=== PATIENT | male | born 1945 | race Caucasian/White ===

== ENCOUNTER 2018-10-03 11:54 | Outpatient (RCR) | payer OTHER, SELFPAY | END 2018-10-03 23:59 | disposition home or self-care (01) | LOC: CR 11:54 | PROVIDERS: PCP Emergency Medicine; Visit Provider Family Medicine | DX: I48.91 Unspecified atrial fibrillation (principal); R55 Syncope and collapse; Z51.89 Encounter for other specified aftercare | CPT/HCPCS: S9472 ==

== ENCOUNTER 2018-10-29 11:55 | Outpatient (RCR) | payer OTHER, SELFPAY | END 2018-11-02 23:59 | disposition home or self-care (01) | LOC: CR 11:55 | PROVIDERS: PCP Emergency Medicine; Visit Provider Family Medicine | DX: I48.91 Unspecified atrial fibrillation (principal); R55 Syncope and collapse; Z51.89 Encounter for other specified aftercare | CPT/HCPCS: S9472 ==

== ENCOUNTER 2018-10-29 18:02 | Emergency (ER) | payer OTHER, SELFPAY ==
[2018-10-29] VITALS (20 sets, daily range): BP systolic 110–124; BP diastolic 52–63; PULSE 0–73; RESP 11–20; TEMP 36.7; O2SAT 94–97
--- NOTE | 2018-10-29 18:24 | ED.GENADUL_ITS ---
Discharge Plan Disposition Patient Disposition: HOME Condition: Stable Discharge Details Chief Complaint: Cellulitis Clinical Impression: Cellulitis of lower leg Primary Care Provider: Enrique Nunez ED Provider: Gurjit Rowe Home Meds and New Rx's Prescriptions: New cephalexin 500 mg capsule 500 mg PO TID 7 Days Qty: 21 RF: 0 Continued trazodone 100 MG tablet 100 mg PO QHS RF: 0 gabapentin 100 MG capsule 600 mg PO BID RF: 0 hydrocodone-acetaminophen [Vicodin] 1 EACH tablet 1 ea PO BID Qty: 60 RF: 0 omeprazole 40 MG capsule,delayed release(DR/EC) 40 mg PO BID Qty: 180 RF: 1 Ocuvite with Lutein 1 TAB tablet 2 tab PO BID RF: 0 albuterol sulfate 2.5 MG/3 ML solution for nebulization 2.5 mg Inhalation Q6H PRN PRNQty: 1 RF: 0 furosemide 40 mg Tablet 40 mg PO DAILY RF: 0 atorvastatin 80 mg Tablet 80 mg PO DAILY RF: 0 metoprolol succinate 100 mg Tablet Extended Release 24 Hr 100 mg PO DAILY RF: 0 warfarin 5 mg Tablet 5 mg PO DIRECTED RF: 0 losartan 25 mg Tablet 25 mg PO DAILY RF: 0 gabapentin 300 mg Capsule 900 mg PO QHS RF: 0 albuterol sulfate 90 mcg/actuation Hfa Aerosol Inhaler 2 puff INHALATION Q4H PRNRF: 0 fluticasone propionate 50 mcg/actuation [place],Suspension 2 spray INTRANASAL DAILY RF: 0 loratadine 10 mg Tablet 10 mg PO DAILY RF: 0 buspirone 15 mg Tablet 15 mg PO BID RF: 0 bupropion HCl 300 mg Tablet Extended Release 24 Hr 300 mg PO QHS RF: 0 Discharge Instructions Instructions: Cellulitis (ED) Additional Instructions: We will ask our care management team to arrange a follow-up for you at the [facility] for or Saturday. You will require both a wound check and a repeat INR. Continue your regular medications. You are given your days dose of furosemide/Lasix today. Begin Keflex tomorrow as prescribed. Return for shaking chill, development of fever, worsening redness or any other acute concerns Medical Decision Making 73-year-old male with history of atrial fibrillation for which she takes warfarin, coronary artery disease and currently in cardiac rehab. Presents with days of progressive lower extremity edema and weeping ulcerations. He is not had a fever and arrives to the ER in no acute distress. Exam reveals chronic venous stasis changes of the lower extremity with shallow ulcerations and overlying cellulitis. Wound culture obtained, patient had screening laboratories including INR performed. Please note a reassuring CBC, INR is 2.9. Mepilex wound dressing placed over ulcerations of left lower extremity. We will ask care management to arrange a follow-up with the [facility] for him, [facility], for or Saturday for wound check and to check INR. Patient given ceftriaxone and will place on Keflex, this should interact with his warfarin the least, but he will require surveillance of the INR which I discussed the patient and his . ECG Data Attestation: I personally reviewed and interpreted this ECG (s) as follows: Interpretation: Sinus bradycardia with a rate of 56, the QRS is narrow, there is no ST segment elevation HPI General Mode of arrival: ambulatory . Date/Time Provider Initiated Documentation: 10/29/18 18:05 . Limitations to Documentation: no limitations . Information obtained by: patient and family . History of Present Illness 73 year old M presents to the emergency department with the chief complaint of Bilateral leg swelling with weeping sores, described as similar to prior episodes, Quality is described as dull and constant, and is localized to the left, right and lower extremity. Patient reports no radiation. Patient started experiencing this day(s) and it has been constant. No relieving factors improve symptom(s), No exacerbating factors reported . Patient notes no other symptoms.; denies chest pain, cough, diaphoresis, fever/chills and shortness of breath. Patient did receive the following treatments prior to arrival, none Related Data Home Medications Medication Instructions Recorded Confirmed Ocuvite with Lutein 2 tab PO BID 11/01/14 10/29/18 albuterol sulfate 2.5 mg INHALATION Q6H PRN PRN #1 03/09/15 10/29/18 bottle gabapentin 600 mg PO BID 03/09/15 10/29/18 trazodone 100 mg PO QHS 03/09/15 10/29/18 hydrocodone-acetaminophen [Vicodin] 1 ea PO BID #60 tab 10/04/15 10/29/18 omeprazole 40 mg PO BID #180 tab-cap 06/06/16 10/29/18 albuterol sulfate 2 puff INHALATION Q4H PRN 10/29/18 10/29/18 atorvastatin 80 mg PO DAILY 10/29/18 10/29/18 bupropion HCl 300 mg PO QHS 10/29/18 10/29/18 buspirone 15 mg PO BID 10/29/18 10/29/18 cephalexin 500 mg PO TID 7 Days #21 cap 10/29/18 fluticasone propionate 2 spray INTRANASAL DAILY 10/29/18 10/29/18 furosemide 40 mg PO DAILY 10/29/18 10/29/18 gabapentin 900 mg PO QHS 10/29/18 10/29/18 loratadine 10 mg PO DAILY 10/29/18 10/29/18 losartan 25 mg PO DAILY 10/29/18 10/29/18 metoprolol succinate 100 mg PO DAILY 10/29/18 10/29/18 warfarin 5 mg PO DIRECTED 10/29/18 10/29/18 Previous Rx's Medication Instructions Recorded albuterol sulfate 2.5 mg INHALATION Q6H PRN PRN #1 03/09/15 bottle cephalexin 500 mg PO TID 7 Days #21 cap 10/29/18 Allergies Allergy/AdvReac Type Severity Reaction Status Date / Time acetaminophen [From Percocet] Allergy Itching Unverified 10/29/18 18:14 oxycodone HCl [From Percocet] Allergy Itching Unverified 10/29/18 18:14 aspirin AdvReac Severe GI BLEEDING Unverified 10/29/18 18:14 NSAIDS (Non-Steroidal AdvReac Severe GI BLEED Unverified 10/29/18 18:14 Anti-Inflamma oxycodone [Oxycodone] AdvReac Unknown Unverified 10/29/18 18:14 tide detergent Allergy Intermediate Skin Rash Uncoded 10/29/18 18:14 General Stated Complaint: GenMedical DOMINIQUE: 3 Review of Systems Review of Systems 6 systems reviewed and otherwise negative FOR[facility] Surgical History Colonoscopy - MAC Extraction of cataract Gastric Bypass Replacement of total knee joint (~1999) Social History Smoking/Tobacco Use Status: Former Tobacco Use Alcohol Intake: never Drug use: Never Do you feel safe at home: Yes Do you feel safe in your relationship?: Yes Exam Narrative Exam Narrative: GEN: awake, alert, oriented 3. Pleasant, well groomed, interactive. HEAD: Normocephalic, atraumatic ENT: Mucous membranes moist, oropharynx unremarkable, External ear exam unremarkable EYES: PERRL, EOMI NECK: Full ROM, no DANE, no menigismus CHEST/RESP: Nontender, clear to auscultation bilateral, no wheeze/rhonchi/rales CARDIOVASCULAR: RRR, no murmur, rub nate. 2+ Rad pulse bilateral ABDOMEN: Soft, nontender, no mass. +Bowel sounds EXT: Full ROM, 2+ symmetric edema. There is chronic venous stasis changes of the bilateral pretibial regions, some clear serous fluid is oozing from shallow ulcerations, there is no significant asymmetry, no cords palpated, nontender. Palpable DP bilaterally. Neuro: Grossly normal neurologic exam, conversant, interactive. Psych: Speech fluent, thoughts congruent, affect normal Course Vital Signs Temperature 36.7 C 10/29/18 18:06 Pulse 59 L 10/29/18 18:06 Respiratory Rate 18 10/29/18 18:06 Blood Pressure 111/55 L 10/29/18 18:06 Pulse Oximetry 96 10/29/18 18:06 Temperature 36.7 C 10/29/18 18:06 Pulse 59 L 10/29/18 18:06 Respiratory Rate 18 10/29/18 18:06 Respiratory Effort 10/29/18 18:09 Blood Pressure 111/55 L 10/29/18 18:06 Blood Pressure Position Sitting 10/29/18 18:06 Pulse Oximetry 96 10/29/18 18:06 Oxygen Delivery Method Room Air 10/29/18 18:06 Oxygen Flow Rate 0 10/29/18 18:06
[2018-10-29 18:49] LABS: Abs Immature Grans 0.01 k/cumm (0.0-0.09); Absolute Basophil Count 0.01 k/cumm (0.0-0.2); Absolute Lymphocyte Count 1.32 k/cumm (1.2-3.4); Absolute Neutrophil Count 4.32 k/cumm (1.2-6.7); Basophils % 0.2; Eosinophils % 1.6; HCT 38.5 % (40.0-50.0); HGB 13.4 g/dL (13.5-17.5); Immature Grans % 0.2; Lymphocytes % 20.8; Mean Corp. HGB Concentration 34.8 g/dL (32.0-36.0); Mean Corpuscular Hemoglobin 32.3 pg (27.0-33.0); Mean Corpuscular Volume 92.8 fL (80-95); Mean Platelet Volume 9.9 fL (8.0-11.0); Monocytes % 9.4; Neutrophils % 67.8; Platelet Count 181 x1000/uL (130-400); RBC 4.15 m/cumm (4.50-6.00); RBC Distribution Width 12.9 % (11.8-14.1); White Blood Cell Count 6.36 k/cumm (4.4-10.8)
[2018-10-29 19:01] LABS: ALT 32 U/L (12-78); AST 30 U/L (15-37); Albumin 3.2 g/dL (3.4-5.0); Alkaline Phosphatase 107 U/L (46-116); Anion Gap 7.8 mmol/L (3-11); BUN 16 mg/dL (7-18); Bilirubin, Total 1.2 mg/dL (0.2-1.0); CO2 28.2 mmol/L (21.0-32.0); CREATININE 0.95 mg/dL (0.70-1.30); Calcium 8.3 mg/dL (8.5-10.1); Chloride 110 mmol/L (98-107); Glucose 97 mg/dL (70-100); Potassium 3.9 mmol/L (3.5-5.1); Sodium 146 mmol/L (136-145); Total Protein 6.4 g/dL (6.4-8.2)
[2018-10-29 19:02] LABS: INR 2.9 (0.9-1.1); Prothrombin Time 29.7 sec (9.3-11.0)
[2018-10-29] MEDS: cefTRIAXone 1,000 MG in Normal Saline 50 ML 100 MG IVPB (19:43)
--- NOTE | 2018-10-29 19:45 | NUR.NOTE ---
Nursing Note: placed metiplex on lower extremities and wrapped with guaze. Taught how to change dressing.
[2018-10-29] MEDS: Furosemide 20 MG/2 ML VIAL IVP (20:15)
== END 2018-10-29 20:25 | disposition home or self-care (01) ==
PROVIDERS: Emergency Provider Emergency Medicine; PCP Internal Medicine
DX: L03.115 Cellulitis of right lower limb (principal); L03.116 Cellulitis of left lower limb; R60.0 Localized edema; I48.91 Unspecified atrial fibrillation; I25.10 Atherosclerotic heart disease of native coronary artery without angina pectoris; Z79.01 Long term (current) use of anticoagulants
CPT/HCPCS: 36415; 80053; 87077; 93005; 96365; 96375; 99284; 85025; 85610; 87070; 87186; 87205; 93010; J0696; J1941

== ENCOUNTER 2018-12-03 13:41 | Outpatient (RCR) | payer OTHER, SELFPAY | END 2018-12-03 23:59 | disposition home or self-care (01) | LOC: CR 13:41 | PROVIDERS: PCP Internal Medicine; Visit Provider Family Medicine | DX: I48.91 Unspecified atrial fibrillation (principal); R55 Syncope and collapse; Z51.89 Encounter for other specified aftercare | CPT/HCPCS: S9472 ==

== ENCOUNTER 2018-12-24 13:03 | Outpatient (RCR) | payer OTHER, SELFPAY | END 2019-01-03 23:59 | disposition home or self-care (01) | LOC: CR 13:03 | PROVIDERS: PCP Internal Medicine; Visit Provider Family Medicine | DX: I48.91 Unspecified atrial fibrillation (principal); R55 Syncope and collapse; Z51.89 Encounter for other specified aftercare | CPT/HCPCS: S9472 ==

== ENCOUNTER 2019-02-25 09:02 | Emergency (ER) | payer MEDICARE, BC, SELFPAY ==
[2019-02-25] VITALS (28 sets, daily range): BP systolic 107–148; BP diastolic 48–130; PULSE 53–107; RESP 12–97; TEMP 36.3; O2SAT 95–98
--- NOTE | 2019-02-25 09:05 | DI.RAD_ITS ---
EXAM: XR PORTABLE CHEST AP INDICATION: palpitations, recurrent afib. COMPARISON: CHEST 2 VIEWS PA,LAT from 03/09/2015 TECHNIQUE: 2D digital imaging was performed. FINDINGS: The lungs are free of infiltrate. The heart is top limits of normal in size. The hilar structures, m ediastinum and tracheal air column are intact. IMPRESSION: No evidence of acute cardiopulmonary disease.
--- NOTE | 2019-02-25 09:06 | W.ED.GENAD ---
Discharge Plan Disposition Patient Disposition: HOME Condition: Stable Discharge Details Chief Complaint: Palpitatns Clinical Impression: Atrial fibrillation Primary Care Provider: Enrique Nunez ED Provider: Gurjit Rowe Home Meds and New Rx's Prescriptions: Continued trazodone 100 MG tablet 100 mg PO QHS RF: 0 gabapentin 100 MG capsule 600 mg PO BID RF: 0 hydrocodone-acetaminophen [Vicodin] 1 EACH tablet 1 ea PO BID Qty: 60 RF: 0 omeprazole 40 MG capsule,delayed release(DR/EC) 40 mg PO BID Qty: 180 RF: 1 Ocuvite with Lutein 1 TAB tablet 1 tab PO BID RF: 0 albuterol sulfate 2.5 MG/3 ML solution for nebulization 2.5 mg Inhalation Q6H PRN PRNQty: 1 RF: 0 furosemide 40 mg Tablet 40 mg PO DAILY RF: 0 metoprolol succinate 100 mg Tablet Extended Release 24 Hr 100 mg PO DAILY RF: 0 warfarin 5 mg Tablet 5 mg PO DIRECTED RF: 0 losartan 25 mg Tablet 25 mg PO DAILY RF: 0 gabapentin 300 mg Capsule 600 mg PO QHS RF: 0 albuterol sulfate 90 mcg/actuation Hfa Aerosol Inhaler 2 puff INHALATION Q4H PRNRF: 0 fluticasone propionate 50 mcg/actuation [place],Suspension 2 spray INTRANASAL DAILY RF: 0 loratadine 10 mg Tablet 10 mg PO DAILY RF: 0 buspirone 15 mg Tablet 15 mg PO BID RF: 0 bupropion HCl 300 mg Tablet Extended Release 24 Hr 300 mg PO QHS RF: 0 Discharge Instructions Instructions: Atrial Fibrillation (ED) Additional Instructions: We will make you a follow-up appointment in cardiology clinic. Return to the ER if you develop fast heart rate, shortness of breath, chest pain, or any other acute concerns. Your INR today was 3.5. We would recommend you have the INR repeated at the clinic visit. Continue your regular medications. Medical Decision Making 73-year-old male with a history of atrial fibrillation, status post cardioversion approximately 2 months ago. Was at cardiac rehab and was noticed on the monitor to have recurrent A. fib, with mild exertion he had a ventricular response approximate 130. He did notice some fluttering in his chest with this. No syncope or chest pain. Brought to the emergency department. Patient arrives in rate controlled atrial fibrillation, he is without other complaint. His exam is otherwise reassuring. He has not taken his daily metoprolol. Given oral beta-larry, small fluid bolus, referred for laboratory testing, EKG, chest x-ray. Chest x-ray reviewed with Dr. Ayala. No evidence of acute finding. Laboratory: CBC unremarkable, chemistries reassuring, troponin negative, TSH within normal limits. INR 3.5 Patient observed, improved, after his daily dose of metoprolol, his pulse is approximately 60 at rest. He ambulated with mild increase of pulse to 70-90. No recurrent tachydysrhythmia and no recurrent symptoms. We will make him a follow-up appointment at the [facility] cardiology clinic. He understands to return for fast heart rate, chest pain, shortness of breath, or any other acute concerns. He may benefit from taking his beta-larry prior to cardiac rehab in the mornings. He is stable and improved, will discharge home. Lab Data Lab results reviewed: Yes I reviewed the patient's lab results. Labs: Laboratory Results - last 24 hr 02/25/19 02/25/19 02/25/19 09:15 09:15 09:15 WBC 6.37 RBC 4.75 Hgb 14.7 Hct 43.1 MCV 90.7 MCH 30.9 MCHC 34.1 RDW 13.2 Plt Count 201 MPV 10.1 Immature Gran % 0.2 Neutrophils % 63.8 Lymphocytes % 23.4 Monocytes % 9.9 Eosinophils % 2.4 Basophils % 0.3 Absolute Neutrophils 4.07 Absolute Lymphocytes 1.49 Absolute Monocytes 0.63 Absolute Eosinophils 0.15 Absolute Basophils 0.02 PT 34.0 H INR 3.5 H Sodium 142 Potassium 4.0 Chloride 105 Carbon Dioxide 31.6 Anion Gap 5.4 BUN 18 Creatinine 0.93 Estimated GFR/1.73 m2 >= 60.00 Glucose 95 Calcium 8.5 Magnesium 1.8 Total Bilirubin 1.1 H AST 34 ALT 45 Alkaline Phosphatase 101 Troponin I < 0.05 Total Protein 7.0 Albumin 3.5 TSH 2.37 ECG Data Attestation: I personally reviewed and interpreted this ECG (s) as follows: Interpretation: EKG from cardiac rehab, February 25 8:34 AM underlying atrial fibrillation, ventricular response of 100, QRS is narrow, no ST segment elevation EKG in the ED: 9:06 AM atrial fibrillation, underlying rate of 82, the QRS is narrow. No ST segment elevation. HPI General Mode of arrival: ambulatory. Date/Time Provider Initiated Documentation: 02/25/19 09:02. Limitations to Documentation: no limitations. Information obtained by: patient and RN notes reviewed. History of Present Illness 73 year old M presents to the emergency department with the chief complaint of Recurrent atrial fibrillation/palpitations, described as mild, and is localized to the chest. Patient reports no radiation. Patient started experiencing this minute(s) and it has been other (Improving). No relieving factors improve symptom(s), No exacerbating factors reported . Patient notes denies chest pain, nausea/vomiting, shortness of breath and syncope. Patient did receive the following treatments prior to arrival, other (EKG at cardiac rehab) Related Data Home Medications Medication Instructions Recorded Confirmed Ocuvite with Lutein 1 tab PO BID 11/01/14 02/25/19 albuterol sulfate 2.5 mg INHALATION Q6H PRN PRN #1 03/09/15 02/25/19 bottle gabapentin 600 mg PO BID 03/09/15 02/25/19 trazodone 100 mg PO QHS 03/09/15 02/25/19 hydrocodone-acetaminophen [Vicodin] 1 ea PO BID #60 tab 10/04/15 02/25/19 omeprazole 40 mg PO BID #180 tab-cap 06/06/16 02/25/19 albuterol sulfate 2 puff INHALATION Q4H PRN 10/29/18 02/25/19 bupropion HCl 300 mg PO QHS 10/29/18 02/25/19 buspirone 15 mg PO BID 10/29/18 02/25/19 fluticasone propionate 2 spray INTRANASAL DAILY 10/29/18 02/25/19 furosemide 40 mg PO DAILY 10/29/18 02/25/19 gabapentin 600 mg PO QHS 10/29/18 02/25/19 loratadine 10 mg PO DAILY 10/29/18 02/25/19 losartan 25 mg PO DAILY 10/29/18 02/25/19 metoprolol succinate 100 mg PO DAILY 10/29/18 02/25/19 warfarin 5 mg PO DIRECTED 10/29/18 02/25/19 Previous Rx's Medication Instructions Recorded albuterol sulfate 2.5 mg INHALATION Q6H PRN PRN #1 03/09/15 bottle Allergies Allergy/AdvReac Type Severity Reaction Status Date / Time acetaminophen [From Percocet] Allergy Itching Unverified 10/29/18 18:14 oxycodone HCl [From Percocet] Allergy Itching Unverified 10/29/18 18:14 aspirin AdvReac Severe GI BLEEDING Unverified 10/29/18 18:14 NSAIDS (Non-Steroidal AdvReac Severe GI BLEED Unverified 10/29/18 18:14 Anti-Inflamma oxycodone [Oxycodone] AdvReac Unknown Unverified 10/29/18 18:14 tide detergent Allergy Intermediate Skin Rash Uncoded 10/29/18 18:14 General DOMINIQUE: 3 PFSH Social History Smoking/Tobacco Use Status: Former Tobacco Use Alcohol Intake: former Drug use: Never Do you feel safe at home: Yes Do you feel safe in your relationship?: Yes Exam Narrative Exam Narrative: GEN: awake, alert, oriented 3. Pleasant, well groomed, interactive. HEAD: Normocephalic, atraumatic ENT: Mucous membranes moist, oropharynx unremarkable, External ear exam unremarkable EYES: PERRL, EOMI NECK: Full ROM, no DANE, no menigismus CHEST/RESP: Nontender, clear to auscultation bilateral, no wheeze/rhonchi/rales CARDIOVASCULAR: Irregularly irregular, no tachycardia, no murmur, rub nate. 2+ Rad pulse bilateral ABDOMEN: Soft, nontender, no mass. +Bowel sounds EXT: Full ROM, no edema, no rash Neuro: Grossly normal neurologic exam, conversant, interactive. Psych: Speech fluent, thoughts congruent, affect normal
[2019-02-25] MEDS: Metoprolol 50 MG TAB 100 MG PO (09:28)
[2019-02-25 09:43] LABS: Abs Immature Grans 0.01 k/cumm (0.0-0.09); Absolute Basophil Count 0.02 k/cumm (0.0-0.2); Absolute Eosinophil Count 0.15 k/cumm (0.0-0.7); Absolute Lymphocyte Count 1.49 k/cumm (1.2-3.4); Absolute Monocyte Count 0.63 k/cumm (0.11-0.7); Absolute Neutrophil Count 4.07 k/cumm (1.2-6.7); Basophils % 0.3; Eosinophils % 2.4; HCT 43.1 % (40.0-50.0); HGB 14.7 g/dL (13.5-17.5); Immature Grans % 0.2; Lymphocytes % 23.4; Mean Corp. HGB Concentration 34.1 g/dL (32.0-36.0); Mean Corpuscular Hemoglobin 30.9 pg (27.0-33.0); Mean Corpuscular Volume 90.7 fL (80-95); Mean Platelet Volume 10.1 fL (8.0-11.0); Monocytes % 9.9; Neutrophils % 63.8; Platelet Count 201 x1000/uL (130-400); RBC 4.75 m/cumm (4.50-6.00); RBC Distribution Width 13.2 % (11.8-14.1); White Blood Cell Count 6.37 k/cumm (4.4-10.8)
[2019-02-25] MEDS: Normal Saline 250 ML 500 ML IV (09:45)
[2019-02-25 09:54] LABS: INR 3.5 (0.9-1.1)
[2019-02-25 10:04] LABS: ALT 45 U/L (16-63); AST 34 U/L (15-37); Albumin 3.5 g/dL (3.4-5.0); Alkaline Phosphatase 101 U/L (46-116); Anion Gap 5.4 mmol/L (3-11); BUN 18 mg/dL (7-18); Bilirubin, Total 1.1 mg/dL (0.2-1.0); CO2 31.6 mmol/L (21.0-32.0); CREATININE 0.93 mg/dL (0.70-1.30); Calcium 8.5 mg/dL (8.5-10.1); Chloride 105 mmol/L (98-107); Glucose 95 mg/dL (70-100); Magnesium 1.8 mg/dL (1.8-2.4); Sodium 142 mmol/L (136-145); TSH 2.37 uIU/mL (0.36-3.74)
[2019-02-25 10:15] LABS: Troponin I < 0.05 ng/mL (0.00-0.06)
--- NOTE | 2019-02-25 10:50 | NUR.NOTE ---
Nursing Note: per Dr Rowe, patient was ambulated with tele deceive around the department. Dr Rowe was monitoring patient that this time. Initially patient felt fine, but on return to the room he stated he felt light-headiness with additional pain. Dr Rowe was notified. Miguel Malik CARE ASST
--- NOTE | 2019-02-25 13:25 | PDOC.ERCMPRO ---
Care Management Progress Note CM received request for coordination of follow up appointment with [facility] within 7-10 days due to recurrent A-Fib. CM faxed clinical information and request to Nika Bermudez CM at [place]: F#[phone].
== END 2019-02-25 11:29 | disposition home or self-care (01) ==
PROVIDERS: Emergency Provider Emergency Medicine; PCP Internal Medicine
DX: I48.91 Unspecified atrial fibrillation (principal); Z87.891 Personal history of nicotine dependence
CPT/HCPCS: 36415; 80053; 93005; 96360; 99285; 71045; 83735; 84443; 84484; 85025; 85610; 93010; 99284

== ENCOUNTER 2019-03-06 02:42 | Outpatient (RCR) | payer OTHER, SELFPAY | END 2019-04-04 23:59 | disposition home or self-care (01) | LOC: CR 02:42 | PROVIDERS: PCP Internal Medicine; Visit Provider Family Medicine | DX: I48.91 Unspecified atrial fibrillation (principal); R55 Syncope and collapse; Z51.89 Encounter for other specified aftercare ==

== ENCOUNTER 2022-08-13 12:05 | Outpatient (CLI) | payer OTHER, SELFPAY ==
--- NOTE | 2022-08-13 10:30 | DI.RAD_ITS ---
Exam(s) XR HIP PELVIS ADULT BL EXAM: XR HIP PELVIS ADULT BL CLINICAL HISTORY: bilateral hip pain. TECHNIQUE: 2D digital imaging was performed of the pelvis and bilateral hips. Three images were obt ained. AP pelvis and lateral views of both hips were obtained. COMPARISON: No exams were available for comparison FINDINGS: BONES: No acute fracture is present. No bony destructive lesion is seen. JOINTS: No dislocation present. Moderate degenerative changes are seen in the hips with joint space n arrowing and acetabular spurring. SOFT TISSUE: Normal. IMPRESSION: Degenerative changes of the hips bilaterally. DATA REPOSITORY: RADIATION DOSE DELIVERED:
== END 2022-08-13 12:06 | disposition home or self-care (01) ==
LOC: DIORS 12:06
PROVIDERS: PCP Internal Medicine; Referring Provider Internal Medicine; Visit Provider Physician Assistant
DX: M25.551 Pain in right hip (principal); M25.552 Pain in left hip; M16.0 Bilateral primary osteoarthritis of hip
CPT/HCPCS: 73521

== ENCOUNTER 2022-11-23 14:20 | Emergency (ER) | payer OTHER, SELFPAY ==
[2022-11-23 14:23] VITALS: BP 139/67; PULSE 68; RESP 18; TEMP 36.1; O2SAT 96
--- NOTE | 2022-11-23 15:28 | ED.GENADUL_ITS ---
Discharge Plan Disposition Patient Disposition: Home Condition: Stable Discharge Details Clinical Impression: Cellulitis of right lower extremity Primary Care Provider: Enrique Nunez ED Provider: Gal Escalera Home Meds and New Rx's Prescriptions: New doxycycline hyclate 100 mg tablet 100 mg PO BID Qty: 14 0RF cephalexin 500 mg tablet 500 mg PO QID Qty: 28 0RF Continued hydrocodone-acetaminophen 5-325 mg tablet 2 tab PO BID PRN lidocaine 5 % adhesive patch,medicated 1 patch topical DAILY PRN Rx Instructions: leave on most painful area for up to 12 hrs ferrous sulfate 325 mg (65 mg iron) tablet 325 mg PO DAILY vitamin A 2,400 mcg capsule 2,400 mcg PO DAILY Centrum Silver Men 300-600-300 mcg tablet 1 tab PO DAILY gabapentin 300 mg capsule 900 mg PO QHS bupropion HCl 150 mg tablet extended release 24 hr 150 mg PO QAM hydrochlorothiazide 25 mg tablet 25 mg PO DAILY trazodone 100 MG tablet 100 mg PO QHS Patient Comments: 03/09/15 RX BY YANI .mariano atorvastatin 40 mg tablet 40 mg PO DAILY furosemide 40 mg tablet 40 mg PO BID gabapentin 100 mg capsule 600 mg PO BID potassium chloride 10 mEq capsule, extended release 10 meq PO DAILY omeprazole 40 mg capsule,delayed release(DR/EC) 40 mg PO BID buspirone 15 mg tablet 30 mg PO BID bupropion HCl 300 mg tablet extended release 24 hr 300 mg PO QAM Ocuvite with Lutein 1 TAB tablet 1 tab PO BID warfarin 5 mg Tablet 5 mg PO DIRECTED Rx Instructions: 5 mg on and sat. 7.5 mg on . losartan 25 mg Tablet 25 mg PO DAILY albuterol sulfate 90 mcg/actuation Hfa Aerosol Inhaler 2 puff INHALATION Q4H PRN fluticasone propionate 50 mcg/actuation [place],Suspension 2 spray INTRANASAL DAILY loratadine 10 mg Tablet 10 mg PO DAILY Discharge Instructions Instructions: Cellulitis (ED) Additional Instructions: Please contact your primary care physician to arrange follow-up. Return to the ER immediately for any worsening or new concerning symptoms. Referrals: [facility] [Provider Group] Discharge Data Discharge Date/Time-TO BE ENTERED AT DEPARTURE: 11/23/22 15:51 Medical Decision Making 77-year-old male with multimedical problems, chronic lymphedema bilateral lower extremities, here with cellulitis of the proximal right lower leg anteriorly. I have initiated treatment with doxycycline and cephalexin. Plan to discharge with close outpatient follow-up. I have recommended he follow-up with forensic specialist. [facility] is looking for closer follow-up. Usual and customary discharge instructions reviewed with the patient. HPI General Mode of arrival: ambulatory . Date/Time Provider Initiated Documentation: 11/23/22 14:33 . Limitations to Documentation: no limitations . Information obtained by: patient . HPI Narrative: 77-year-old male with multimedical problems, chronic lymphedema bilateral lower extremities, now with erythema right anterior lower leg over the past 1 week, worsening. No associated fever. Related Data Home Medications Medication Instructions Recorded Confirmed vit A 300 mcg-C 200 mg-E 27 1 tab PO BID 11/01/14 11/23/22 mg-lutein 2 mg and minerals tablet (Ocuvite with Lutein) trazodone 100 mg tablet 100 mg PO QHS 03/09/15 11/23/22 albuterol sulfate 90 mcg/actuation 2 puff inhalation Q4H PRN 10/29/18 11/23/22 aerosol inhaler fluticasone propionate 50 2 spray intranasal DAILY 10/29/18 11/23/22 mcg/actuation nasal spray,suspension loratadine 10 mg tablet 10 mg PO DAILY 10/29/18 11/23/22 losartan 25 mg tablet 25 mg PO DAILY 10/29/18 11/23/22 warfarin 5 mg tablet 5 mg PO DIRECTED 10/29/18 11/23/22 bupropion HCl 150 mg 24 hr tablet, 150 mg PO QAM 12/07/20 11/23/22 extended release gabapentin 300 mg capsule 900 mg PO QHS 12/07/20 11/23/22 hydrochlorothiazide 25 mg tablet 25 mg PO DAILY 12/07/20 11/23/22 [id number] 300 mcg-K 60 1 tab PO DAILY 12/07/20 11/23/22 mcg-lycop 600 mcg-lutein 300 mcg tablet (Centrum Silver Men) atorvastatin 40 mg tablet 40 mg PO DAILY 06/20/22 11/23/22 furosemide 40 mg tablet 40 mg PO BID 06/20/22 11/23/22 gabapentin 100 mg capsule 600 mg PO BID 06/20/22 11/23/22 potassium chloride 10 mEq 10 meq PO DAILY 06/20/22 11/23/22 capsule,extended release bupropion HCl 300 mg 24 hr tablet, 300 mg PO QAM 08/13/22 11/23/22 extended release buspirone 15 mg tablet 30 mg PO BID 08/13/22 11/23/22 ferrous sulfate 325 mg (65 mg 325 mg PO DAILY 08/13/22 11/23/22 iron) tablet hydrocodone 5 mg-acetaminophen 325 2 tab PO BID PRN 08/13/22 11/23/22 mg tablet lidocaine 5 % topical patch 1 patch topical DAILY PRN 08/13/22 11/23/22 omeprazole 40 mg capsule,delayed 40 mg PO BID 08/13/22 11/23/22 release vitamin A 2,400 mcg capsule 2,400 mcg PO DAILY 08/13/22 11/23/22 cephalexin 500 mg tablet 500 mg PO QID #28 tabs 11/23/22 doxycycline hyclate 100 mg tablet 100 mg PO BID #14 tabs 11/23/22 Previous Rx's Medication Instructions Recorded cephalexin 500 mg tablet 500 mg PO QID #28 tabs 11/23/22 doxycycline hyclate 100 mg tablet 100 mg PO BID #14 tabs 11/23/22 Allergies Allergy/AdvReac Type Severity Reaction Status Date / Time acetaminophen [From Percocet] Allergy Itching Verified 11/23/22 14:28 oxycodone HCl [From Percocet] Allergy Itching Verified 11/23/22 14:28 aspirin AdvReac Severe GI BLEEDING Verified 11/23/22 14:28 NSAIDS (Non-Steroidal AdvReac Severe GI BLEED Verified 11/23/22 14:28 Anti-Inflamma oxycodone [Oxycodone] AdvReac Unknown Verified 11/23/22 14:28 tide detergent Allergy Intermediate Skin Rash Uncoded 11/23/22 14:28 General Stated Complaint: Cellulitis DOMINIQUE: 3 PFSH All Active Problems (Updated 11/23/22 @ 15:32 by Gal Escalera MD) Cellulitis of right lower extremity (Acute) Degenerative joint disease of left hip (Acute) Degenerative joint disease of right hip (Acute) Greater trochanteric bursitis of both hips (Acute) Bilateral 80 mg DEPO MEDROL 08/13/22 Skin lesion of neck (Acute) Anterior epistaxis (Acute) History of cardioversion (Acute) Bleeding ulcer (Acute) Hx of esophagogastroduodenoscopy (Chronic) Hx of Achilles tendon repair (Acute) S/P knee replacement (Acute) H/O gastric bypass (Acute) Right heart failure due to pulmonary hypertension (Acute) Dyspnea on exertion (Acute) Atrial fibrillation (Chronic) Macular degeneration (Acute) Peripheral neuropathy (Acute) Iron deficiency anemia (Acute) GI bleed (Chronic) Peptic ulcer disease (Chronic) Leukoplakia of larynx (Acute) Agent orange exposure (Acute) Arthritis (Acute) Morbid obesity (Acute) PTSD (post-traumatic stress disorder) (Acute) Dyspnea (Acute) Surgical History Colonoscopy - [facility] 2007 Extraction of cataract 04/19/15; DR. BRYANT; RIGHT EYE 05/03/15; DR. BRYANT; LEFT EYE Gastric Bypass Replacement of total knee joint (~1999) 1999;RIGHT 2009[place] [place] Family History Father No problems noted. 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 What is your relationship status?: Panel score (0-1 are the most socially isolated patients): 1 Do you feel safe at home: Yes Do you feel safe in your relationship?: Yes Exam Const General: cooperative and no acute distress HENMT Mouth: moist mucous membranes Eyes Sclera: normal sclerae Resp Auscultation: clear to auscultation bilaterally, no rales, no rhonchi and no wheezes Cardio Rate: regular rate and not tachycardic Rhythm: regular rhythm Skin Rashes: rashes noted (Erythema proximal to mid right anterior lower leg) Neuro General: patient alert, patient awake and tone normal Extrem General: no calf tenderness and edema Laterality: bilateral Course Vital Signs Vital signs: Vital Signs Temperature 36.1 C L 11/23/22 14:23 Pulse 68 11/23/22 14:23 Respiratory Rate 18 11/23/22 14:23 Blood Pressure 139/67 11/23/22 14:23 Pulse Oximetry 96 11/23/22 14:23 Temperature 36.1 C L 11/23/22 14:23 Temperature Source Temporal Artery Scan 11/23/22 14:23 Pulse 68 11/23/22 14:23 Respiratory Rate 18 11/23/22 14:23 Respiratory Effort Normal 11/23/22 14:27 Blood Pressure 139/67 11/23/22 14:23 Blood Pressure Position Sitting 11/23/22 14:23 Pulse Oximetry 96 11/23/22 14:23 Oxygen Delivery Method Room Air 11/23/22 14:23 Oxygen Flow Rate 0 11/23/22 14:23 Pain Level 7 11/23/22 14:23
[2022-11-23] MEDS: Cephalexin 500 MG CAP PO (15:49)
[2022-11-23] MEDS: Doxycycline Hyclate 100 MG CAP PO (15:49)
== END 2022-11-23 15:51 | disposition home or self-care (01) ==
PROVIDERS: Emergency Provider Student in an Organized Health Care Education/Training Program; PCP Internal Medicine
DX: L03.115 Cellulitis of right lower limb (principal); I48.91 Unspecified atrial fibrillation; Z79.01 Long term (current) use of anticoagulants; Z98.84 Bariatric surgery status
CPT/HCPCS: 99282

== ENCOUNTER → 2023-01-28 01:22 | Outpatient (CLI) | payer OTHER, SELFPAY ==
--- NOTE | 2023-01-28 12:58 | DI.RAD_ITS ---
Exam(s) XR CHEST 2V PA LATERAL EXAM: XR CHEST 2V PA LATERAL CLINICAL HISTORY: H/O UDAY PNEUMONIA 09/25, CONTINUED DYSPNEA, ? RESOLUTION [id number]. TECHNIQUE: 2D digital imaging was performed. COMPARISON: CR XR PORTABLE CHEST AP from 02/25/2019 FINDINGS: 2 views: Heart size is upper normal. The mediastinum is not widened. Left lung is clear. There is platelike atelectasis in the right middle lobe noted. No pleural effus ions. No pulmonary edema. No pneumothorax. IMPRESSION: There is platelike atelectasis in the right middle lobe. DATA REPOSITORY: RADIATION DOSE DELIVERED:
== END ==
PROVIDERS: PCP Internal Medicine; Visit Provider Internal Medicine
DX: J98.11 Atelectasis (principal)
CPT/HCPCS: 71046

== ENCOUNTER 2023-10-09 11:09 | Emergency (ER) | payer OTHER, SELFPAY ==
[2023-10-09 11:20] VITALS: BP 145/61; PULSE 59; RESP 15; TEMP 36.5; O2SAT 98
--- NOTE | 2023-10-09 11:30 | DI.RAD_ITS ---
Exam(s) XR KNEE LT 3V AP,LAT,CHRISTINE EXAM: XR KNEE LT 3V AP,LAT,CHRISTINE CLINICAL HISTORY: L knee pain. TECHNIQUE: 2D digital imaging was performed. Three images were obtained. AP, lateral and PA tunnel views were obtained. COMPARISON: CR LEFT KNEE 3 VIEW COMPLETE from 01/31/2010 FINDINGS: BONES: There are post operative changes of a left total knee replacement present. No fracture or dis location. There is an enthesophyte at the anterior patella. JOINTS: The orthopedic hardware is in good position. No evidence of hardware loosening. There is a small joint effusion. SOFT TISSUE: Normal. IMPRESSION: Stable left total knee replacement. No acute fracture or dislocation. DATA REPOSITORY: RADIATION DOSE DELIVERED:
--- NOTE | 2023-10-09 11:36 | ED.GENADUL_ITS ---
Discharge Plan Disposition Patient Disposition: Home Condition: Stable Discharge Details Clinical Impression: Left knee pain Primary Care Provider: Enrique Nunez ED Provider: Logan Pichardo Home Meds and New Rx's Prescriptions: Continued hydrocodone-acetaminophen 5-325 mg tablet 2 tab PO BID PRN lidocaine 5 % adhesive patch,medicated 1 patch topical DAILY PRN Rx Instructions: leave on most painful area for up to 12 hrs ferrous sulfate 325 mg (65 mg iron) tablet 325 mg PO DAILY vitamin A 2,400 mcg capsule 2,400 mcg PO DAILY Centrum Silver Men 300-600-300 mcg tablet 1 tab PO DAILY bupropion HCl 150 mg tablet extended release 24 hr 150 mg PO QAM hydrochlorothiazide 25 mg tablet 25 mg PO DAILY trazodone 100 MG tablet 100 mg PO QHS Patient Comments: 03/09/15 RX BY YANI .mariano atorvastatin 40 mg tablet 40 mg PO DAILY potassium chloride 10 mEq capsule, extended release 10 meq PO DAILY omeprazole 40 mg capsule,delayed release(DR/EC) 40 mg PO BID buspirone 15 mg tablet 30 mg PO BID bupropion HCl 300 mg tablet extended release 24 hr 300 mg PO QAM furosemide 40 mg tablet 40 mg PO DAILY gabapentin 100 mg capsule 600 mg PO TID Ocuvite with Lutein 1 TAB tablet 1 tab PO BID warfarin 5 mg Tablet 5 mg PO DIRECTED Rx Instructions: 5 mg on and sat. 7.5 mg on . losartan 25 mg Tablet 25 mg PO DAILY albuterol sulfate 90 mcg/actuation Hfa Aerosol Inhaler 2 puff INHALATION Q4H PRN fluticasone propionate 50 mcg/actuation [place],Suspension 2 spray INTRANASAL DAILY loratadine 10 mg Tablet 10 mg PO DAILY buprenorphine [Butrans] 20 mcg/hour patch weekly 1 patch transdermal Q7D Discharge Instructions Instructions: Knee Pain (ED) Additional Instructions: You were seen in the emergency department for your worsening left knee pain over time with history of total knee replacement. You have had to have IV abrasion of the right knee and do suspect that you need a revision of the left knee as well. There is no acute fracture or other pathology seen on x-ray of your knee. You had no trauma to the area, you have no signs of neurovascular compromise below the knee. There is unlikely to be any emergent interventions warranted at this time. You need to follow-up with an orthopedic provider [facility] through the [facility]. Please contact your [facility] provider for referral to orthopedics. Please note our orthopedic team does not perform joint replacements or revisions of j oint replacements. Obtain OTC compression sleeve knee braces for relief of short-term symptoms and improvement of everyday mobility. In the meantime, please use therapeutic dosing of Tylenol (acetamenophen) & Advil (ibuprofen) in an alternating fashion as follows: Take 650mg of Tylenol every 6 hours without missing doses- that is 4 times per day. [place] in between the Tylenol dosings, take 400mg of Advil also on a 6 hour schedule, that is also 4 times per day. Please note that some common cold medications & prescription pain medications may contain acetamenophen and you need to read OTC drug labels and factor that in to maximum daily dosings. Please return to the emergency department for any severe increase in redness to the knee, inability to bear weight, complete numbness distal to the knee Referrals: Enrique Nunez [Primary Care Provider] - Discharge Data Discharge Date/Time-TO BE ENTERED AT DEPARTURE: 10/09/23 13:20 HPI General Date/Time Provider Initiated Documentation: 10/09/23 11:31 . HPI Narrative: 78 year-old male presents to ED today by POV/ambulating with a chief complaint of chronic L knee pain with onset long-term. Patient has history of bilateral TKA's, w R-knee revision, now having increased L knee pain daily for a long time- believes he needs another revision- states [facility] ER for urgent imaging without evidence of acuity or trauma. Quality described as soreness with ambulation, activities of daily living, no radiation to numbness/tingling, unilateral leg swelling, warmth to touch, inability to weight-bear. Severity is described as moderate. Palliating factors include nothing specific attempted. Provoking factors include nothing specific. Events leading up to the incident/Associated Symptoms: Patient has seen an orthopaedic surgeon in [place] in the past. Patient not anticoagulated. Related Data Home Medications Medication Instructions Recorded Confirmed vit A 300 mcg-C 200 mg-E 27 1 tab PO BID 11/01/14 10/09/23 mg-lutein 2 mg and minerals tablet (Ocuvite with Lutein) trazodone 100 mg tablet 100 mg PO QHS 03/09/15 10/09/23 albuterol sulfate 90 mcg/actuation 2 puff inhalation Q4H PRN 10/29/18 10/09/23 aerosol inhaler fluticasone propionate 50 2 spray intranasal DAILY 10/29/18 10/09/23 mcg/actuation nasal spray,suspension loratadine 10 mg tablet 10 mg PO DAILY 10/29/18 10/09/23 losartan 25 mg tablet 25 mg PO DAILY 10/29/18 10/09/23 warfarin 5 mg tablet 5 mg PO DIRECTED 10/29/18 10/09/23 bupropion HCl 150 mg 24 hr tablet, 150 mg PO QAM 12/07/20 10/09/23 extended release hydrochlorothiazide 25 mg tablet 25 mg PO DAILY 12/07/20 10/09/23 [id number] 300 mcg-K 60 1 tab PO DAILY 12/07/20 10/09/23 mcg-lycop 600 mcg-lutein 300 mcg tablet (Centrum Silver Men) atorvastatin 40 mg tablet 40 mg PO DAILY 06/20/22 10/09/23 potassium chloride 10 mEq 10 meq PO DAILY 06/20/22 10/09/23 capsule,extended release bupropion HCl 300 mg 24 hr tablet, 300 mg PO QAM 08/13/22 10/09/23 extended release buspirone 15 mg tablet 30 mg PO BID 08/13/22 10/09/23 ferrous sulfate 325 mg (65 mg 325 mg PO DAILY 08/13/22 10/09/23 iron) tablet hydrocodone 5 mg-acetaminophen 325 2 tab PO BID PRN 08/13/22 10/09/23 mg tablet lidocaine 5 % topical patch 1 patch topical DAILY PRN 08/13/22 10/09/23 omeprazole 40 mg capsule,delayed 40 mg PO BID 08/13/22 10/09/23 release vitamin A 2,400 mcg capsule 2,400 mcg PO DAILY 08/13/22 10/09/23 furosemide 40 mg tablet 40 mg PO DAILY 07/02/23 10/09/23 gabapentin 100 mg capsule 600 mg PO TID 07/02/23 10/09/23 buprenorphine 20 mcg/hour weekly 1 patch transdermal Q7D 10/09/23 10/09/23 transdermal patch (Butrans) Allergies Allergy/AdvReac Type Severity Reaction Status Date / Time acetaminophen [From Percocet] Allergy Itching Verified 10/09/23 11:23 oxycodone HCl [From Percocet] Allergy Itching Verified 10/09/23 11:23 aspirin AdvReac Severe GI BLEEDING Verified 10/09/23 11:23 NSAIDS (Non-Steroidal AdvReac Severe GI BLEED Verified 10/09/23 11:23 Anti-Inflamma oxycodone [Oxycodone] AdvReac Unknown uknown Verified 10/09/23 11:24 tide detergent Allergy Intermediate Skin Rash Uncoded 10/09/23 11:23 General Stated Complaint: Orthopedic DOMINIQUE: 4 Review of Systems All systems reviewed & are unremarkable except as noted in HPI and below Exam Narrative Exam Narrative: GENERAL APPEARANCE: Well-nourished, non-toxic, awake and alert, atraumatic, no acute distress. SKIN: Warm, pink, dry, intact, without rashes/lesions/ulcerations. HEAD: Normocephalic, atraumatic, normal hair distribution for gender/age. EYES: Normal conjunctiva, no exudates on lids/lashes. ENT: Nares patent, no circumoral cyanosis, no facial swelling NECK: Supple, trachea midline, painless cervical ROM. LUNGS/CHEST: Non-labored respirations, normal A/P diameter, symmetrical expansion, no chest wall deformity HEART (CV/PV): No peripheral edema, no JVD. ABDOMEN: Soft, non-distended, no guarding. MSK: Normal ROM, no swelling/deformity to bilateral UEs or LEs, moving all extremities without weakness, no cyanosis, spine midline without tenderness, normal curvature. L LE: No overt swelling to left knee, no joint line tenderness, no ligamentous laxity with varus valgus forces, able to ambulate normally, no warmth to touch, no pain with passive range of motion, neurovascularly intact distal NEURO: Mental Status AAOx4 - alert to person, place, time, events No facial droop, no forehead involvement. Motor: No focal weakness - strength 5/5 in bilateral UEs and LEs, proximal and distal, symmetric. Sensory: sensation intact to light touch globally. Gait normal: patient ambulated without ataxia into ED room. PSYCH: euthymic, cooperative, pleasant, appropriate speech Course Vital Signs Vital signs: Vital Signs Temperature 36.5 C 10/09/23 11:20 Pulse 59 L 10/09/23 11:20 Respiratory Rate 15 10/09/23 11:20 Blood Pressure 145/61 H 10/09/23 11:20 Pulse Oximetry 98 10/09/23 11:20 Temperature 36.5 C 10/09/23 11:20 Temperature Source Temporal Artery Scan 10/09/23 11:20 Pulse 59 L 10/09/23 11:20 Respiratory Rate 15 10/09/23 11:20 Respiratory Effort Normal 10/09/23 11:22 Blood Pressure 145/61 H 10/09/23 11:20 Blood Pressure Position Sitting 10/09/23 11:20 Pulse Oximetry 98 10/09/23 11:20 Oxygen Delivery Method Room Air 10/09/23 11:20 Oxygen Flow Rate 0 10/09/23 11:20 Pain Level 9 10/09/23 11:20 Medical Decision Making This dictation utilizes [id number] dictation software and may contain unedited grammatical errors. 78 year-old male presents to ED today by POV/ambulating with a chief complaint of chronic L knee pain with onset long-term. Patient has history of bilateral TKA's, w R-knee revision, now having increased L knee pain daily for a long time- believes he needs another revision- states the [facility] telephone tri[facility] to go to ER for urgent imaging without evidence of acuity or trauma. Quality described as soreness with ambulation, activities of daily living, no radiation to numbness/tingling, unilateral leg swelling, warmth to touch, inability to weight-bear. Severity is described as moderate. Palliating factors include nothing specific attempted. Provoking factors include nothing specific. Events leading up to the incident/Associated Symptoms: Patient has seen an orthopaedic surgeon in [place] in the past. Patients' medical history: [ ]. Family and social history: [ ]. Pertinent exam findings / vital signs include L LE: No overt swelling to left knee, no joint line tenderness, no ligamentous laxity with varus valgus forces, able to ambulate normally, no warmth to touch, no pain with passive range of motion, neurovascularly intact distal. Differential / pathologies of concern include arthritis, knee pain, occult fract ure abraham-TKA. Diagnostic studies of: -XR L Knee - no acute abnormality seen, hardware in place. Interventions of: -Provided imaging for follow-up at ortho practice of choice, recommend OTC knee neoprene sleeve for symptomatic relief, therapeutic APAP/NSAIDs, RICE therapy. ED Course/Assessment/Plan: 78-year-old male with history of bilateral TKAs with revision of right TKA now having left knee pain increasing gradually over time was referred specifically to the ER by [facility] telephone triage for completely nonemergent reasons, atraumatic gradually increasing knee pain, ambulatory, afebrile, no symptoms of any kind of neurovascular compromise. Do not feel emergent evaluation was completely warranted by [facility] telephone triage, provided imaging for follow-up, counseled on some practices locally that may revise his TKA, counseled on strict return criteria for inability to ambulate, NV compromise distal to the knee, increasing unilateral leg swelling. Recommend OTC knee bracing, therapeutic OTC analgesics. Findings not consistent with fracture, NV compromise. Disposition of Left Knee Pain. Patient verbalized understanding of the plan and return to ED criteria and engaged in shared decision making. Medical Records Medical records reviewed: Yes I reviewed the patient's medical records. Imaging Data Radiologic Study: Attestation: I personally reviewed and interpreted this imaging study as follows: Imaging: X-Ray Radiologist's impression: EXAM: XR KNEE LT 3V AP,LAT,CHRISTINE CLINICAL HISTORY: L knee pain. TECHNIQUE: 2D digital imaging was performed. Three images were obtained. AP, lateral and PA tunnel views were obtained. COMPARISON: CR LEFT KNEE 3 VIEW COMPLETE from 01/31/2010 FINDINGS: BONES: There are post operative changes of a left total knee replacement present. No fracture or dislocation. There is an enthesophyte at the anterior patella. JOINTS: The orthopedic hardware is in good position. No evidence of hardware loosening. There is a small joint effusion. SOFT TISSUE: Normal. IMPRESSION: Stable left total knee replacement. No acute fracture or dislocation. Quality:SDOH Health Related Social Needs: No Data to Display PFSH All Active Problems (Updated 10/09/23 @ 13:03 by COREY Abad) Left knee pain (Acute) Degenerative joint disease of left hip (Acute) Degenerative joint disease of right hip (Acute) Greater trochanteric bursitis of both hips (Acute) Bilateral 80 mg DEPO MEDROL 08/13/22 Skin lesion of neck (Acute) Anterior epistaxis (Acute) History of cardioversion (Acute) Bleeding ulcer (Acute) Hx of esophagogastroduodenoscopy (Chronic) Hx of Achilles tendon repair (Acute) S/P knee replacement (Acute) H/O gastric bypass (Acute) Right heart failure due to pulmonary hypertension (Acute) Dyspnea on exertion (Acute) Atrial fibrillation (Chronic) Macular degeneration (Acute) Peripheral neuropathy (Acute) Iron deficiency anemia (Acute) GI bleed (Chronic) Peptic ulcer disease (Chronic) Leukoplakia of larynx (Acute) Agent orange exposure (Acute) Arthritis (Acute) Morbid obesity (Acute) PTSD (post-traumatic stress disorder) (Acute) Dyspnea (Acute) Surgical History Replacement of total knee joint (~1999) 1999;RIGHT 2009;[facility] – [place]-REVISION OF RIGHT Gastric Bypass Colonoscopy - [facility] – [place] 2007 Extraction of cataract 04/19/15; DR. BRYANT; RIGHT EYE 05/03/15; DR. BRYANT; LEFT EYE Family History Father No problems noted. 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
== END 2023-10-09 13:20 | disposition home or self-care (01) ==
PROVIDERS: Emergency Provider Physician Assistant; PCP Internal Medicine
DX: M25.562 Pain in left knee (principal); I48.91 Unspecified atrial fibrillation; Z79.01 Long term (current) use of anticoagulants; Z87.891 Personal history of nicotine dependence; Z96.653 Presence of artificial knee joint, bilateral; Z98.84 Bariatric surgery status
CPT/HCPCS: 73562; 99283

== ENCOUNTER 2024-01-15 08:08 | Outpatient (REF) | payer OTHER, SELFPAY ==
--- NOTE | 2024-01-15 07:38 | SKI_PTH ---
PATIENT: Stephen Guzman LOC: [facility] U#:[id number] AGE/SX: 78/M ROOM: RE01/15/[address]: Tony Coronel MD : 1945 BED: DIS: 01/15/2024 SPEC #: [id number] RECD: 01/15/24 12:39 STATUS: DANIEL REQ #: [id number] ISAEL: 01/15/24 07:[address]: Tony Coronel DEPT: Surgical Specimen RECD BY: Cherri Wallace ENTERED: 01/15/24 12:39 SP TYPE: DENTON GALARZA DR: Enrique Nunez Tissues: 1 - SKIN BIOPSY(SHAVE/PUNCH) Procedures: SKIN LEVEL 4 Comments: [id number]
== END 2024-01-15 08:09 | disposition home or self-care (01) ==
LOC: LBN 08:08
PROVIDERS: PCP Internal Medicine; Visit Provider Otolaryngology
DX: L98.9 Disorder of the skin and subcutaneous tissue, unspecified (principal)
CPT/HCPCS: 88305